=== PATIENT | male | born 1950 ===

== ENCOUNTER 2019-07-09 02:22 | Outpatient (CLI) | payer MEDICARE, BC | END 2019-07-09 23:59 | disposition home or self-care (01) | LOC: DIABETIC 02:22 | PROVIDERS: ATTEND Family Medicine | DX: E11.9 Type 2 diabetes mellitus without complications (principal); Z79.82 Long term (current) use of aspirin; Z79.899 Other long term (current) drug therapy | CPT/HCPCS: G0108 ==

== ENCOUNTER 2019-08-13 03:37 | Outpatient (CLI) | payer MEDICARE, BC | END 2019-08-13 23:59 | disposition home or self-care (01) | LOC: DIABETIC 03:37 | PROVIDERS: ATTEND Family Medicine | DX: E11.65 Type 2 diabetes mellitus with hyperglycemia (principal); Z79.82 Long term (current) use of aspirin; Z79.899 Other long term (current) drug therapy | CPT/HCPCS: G0108 ==

== ENCOUNTER 2019-11-20 02:27 | Outpatient (CLI) | payer MEDICARE, BC | END 2019-11-20 23:59 | disposition home or self-care (01) | LOC: DIABETIC 02:27 | PROVIDERS: ATTEND Family Medicine | DX: E11.9 Type 2 diabetes mellitus without complications (principal) | CPT/HCPCS: G0108 ==